=== PATIENT | male | born 1970 | race Two or more races ===

== ENCOUNTER 2023-06-11 05:48 | Emergency (ER) | payer OTHER ==
[~2023-06-11] VITALS: Ht 177.8 cm; Wt 83.9 kg
[2023-06-11] MEDS ORDERED: NEOM10DR11 LEFT EAR (06:16)
[2023-06-11] MEDS ORDERED: AMOX-430 PO (06:16)
[2023-06-11 06:23] VITALS: BP 130/83; TEMP 97.8; O2SAT 98
== END 2023-06-11 06:23 | disposition home or self-care (01) ==
LOC: ER 06:08
DX: H60.92 Unspecified otitis externa, left ear (principal)

== ENCOUNTER 2024-02-24 10:49 | Emergency (ER) | payer OTHER ==
[~2024-02-24] VITALS: Ht 177.8 cm; Wt 90.7 kg
[~2024-02-24 10:49] MED LIST: AMOX-430 PO; NEOM10DR11 LEFT EAR
[2024-02-24] MEDS ORDERED: KETOROLAC TROMETHAMINE 15 MG/ML VIAL ONE (11:49)
[2024-02-24] MEDS ORDERED: LIDOCAINE 5% (PATCH) 1 EA PATCH TP ONE (11:50)
[2024-02-24] MEDS: LIDOCAINE 5% (PATCH) 1 EA PATCH TP STA (11:56)
[2024-02-24] MEDS: KETOROLAC TROMETHAMINE 15 MG/ML VIAL IM ONE (11:57)
[2024-02-24] MEDS ORDERED: IBUP-1955 PO (12:12)
[2024-02-24] MEDS ORDERED: METH4TAB17 PO (12:12)
[2024-02-24] MEDS ORDERED: HYDR-4303 PO (12:12)
[2024-02-24] MEDS ORDERED: CYCL5TAB PO (12:12)
[2024-02-24] MEDS ORDERED: LIDO30AD10 TP (12:12)
[2024-02-24 12:51] VITALS: BP 129/90; TEMP 97.9; O2SAT 98
== END 2024-02-24 12:52 | disposition home or self-care (01) ==
LOC: ER 10:52
DX: M54.41 Lumbago with sciatica, right side (principal); F17.200 Nicotine dependence, unspecified, uncomplicated
CPT/HCPCS: 99283; 96372; J1885

== ENCOUNTER 2024-04-09 21:29 | Emergency (ER) | payer OTHER ==
[~2024-04-09] VITALS: Ht 180.3 cm; Wt 95.3 kg
[~2024-04-09 21:29] MED LIST changes: +CYCL5TAB PO; +HYDR-4303 PO; +IBUP-1955 PO; +LIDO30AD10 TP; +METH4TAB17 PO
[2024-04-09] MEDS: KETOROLAC TROMETHAMINE INJ 30 MG/ML VIAL IV ONE (22:55)
[2024-04-09] MEDS ORDERED: KETOROLAC TROMETHAMINE INJ 30 MG/ML VIAL ONE (22:55)
[2024-04-09] MEDS ORDERED: methylPREDNISolone SOD SUCC 125 MG/2ML VIAL ONE (22:55)
[2024-04-09] MEDS: methylPREDNISolone SOD SUCC 125 MG/2ML VIAL IV ONE (22:56)
[2024-04-09] MEDS: IV NS 0.9% 1,000 ML IV ONE (23:00)
[2024-04-09 23:11] LABS: BASOPHILS # (AUTO) 0.1 K/uL (0.0-0.2); BASOPHILS % (AUTO) 0.9 % (0.0-2.0); EOSINOPHILS # (AUTO) 0.2 K/uL (0.0-0.7); EOSINOPHILS % (AUTO) 2.1 % (0.0-6.0); HEMATOCRIT 47 % (39-51); HEMOGLOBIN 16.1 g/dL (13.5-17.5); LYMPHOCYTES # (AUTO) 2.4 K/uL (0.8-4.8); LYMPHOCYTES % (AUTO) 21.6 % (20.0-44.0); MEAN CORPUSCULAR HEMOGLOBIN 32 PG (26.0-33.0); MEAN CORPUSCULAR HGB CONC 34 g/dl (31.0-36.0); MEAN CORPUSCULAR VOLUME 93 fL (80-96); MONOCYTES # (AUTO) 0.9 K/uL (0.1-1.30); MONOCYTES % (AUTO) 8.5 % (2.0-12.0); NEUTROPHILS # (AUTO) 7.3 K/uL (1.8-8.9); NEUTROPHILS % (AUTO) 66.9 % (43.0-81.0); PLATELET COUNT (AUTO) 153 K/uL (150-450); RED BLOOD CELL COUNT(AUTO) 5.05 MIL/uL (4.5-6.0); RED CELL DISTRIBUTION WIDTH 13.7 % (11.5-15.0); WHITE BLOOD COUNT (AUTO) 10.9 K/uL (4.3-11.0)
[2024-04-09 23:21] LABS: CALCIUM, SERUM 8.9 mg/dL (8.5-10.1); CREATININE 0.6 mg/dL (0.6-1.3); POTASSIUM 3.7 mmol/L (3.5-5.1)
[2024-04-09 23:26] LABS: ALBUMIN 3.2 g/dL (3.4-5.0); BILIRUBIN,TOTAL 1.1 mg/dL (0.2-1.0); TOTAL PROTEIN, SERUM 9.1 g/dL (6.4-8.2)
[2024-04-09] MEDS ORDERED: CYCL5TAB PO (23:56)
[2024-04-09] MEDS ORDERED: KETO10TA2 PO (23:56)
[2024-04-09] MEDS ORDERED: PRED20TA PO (23:56)
[2024-04-10 00:24] VITALS: BP 129/78; TEMP 98; O2SAT 99
== END 2024-04-10 00:25 | disposition home or self-care (01) ==
LOC: ER 21:31
DX: M54.41 Lumbago with sciatica, right side (principal); F17.200 Nicotine dependence, unspecified, uncomplicated
CPT/HCPCS: 99284; 96374; 96361; 96375; 85025; 36415; 80053; 80320; J2919; J1885; J7030; G0480